=== PATIENT | male | born 1950 | race Hispanic/Latino ===

== ENCOUNTER 2017-07-08 13:11 | Emergency (ER) | payer SELFPAY ==
[2017-07-08 13:12] VITALS: BMI 28.6
[2017-07-08 13:24] VITALS: TEMP 98.1; O2SAT 98
--- NOTE | 2017-07-08 13:53 | ED PDOC ---
Arrival/HPI <Allen Cornejo - Last Filed: 07/08/17 15:49> <John Castillo - Last Filed: 07/08/17 17:01> - General Chief Complaint: Upper Extremity Problem/Injury - History of Present Illness Narrative History of Present Illness (Text): 07/08/17 13:48 Pt is a 67 yo M with PMH of DM, HTN, CAD, OK s/p stents, HLD, COPD presents to ED with left sided neck and shoulder pain. Pt states that pain has been on- going for 3 months now. Pt states that pain starts in his neck and radiates down his shoulder into his arm. Pt is unable to flex or abduct his left arm, nor can he flex his left elbow. Pt admits to some numbness on the lateral part of his arm proximally. Pt was evaluated at [facility] [place]. 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 Changes are worst at C4-5 and C5-6 with severe spinal canal and left neural foraminal stenosis. Pt was told that surgery vs epidural could be done. However, the wait times for either procedure was too long and patient wanted to be evaluated and treated sooner. (Allen Cornejo) Past Medical History - Provider Review Nursing Documentation Reviewed: Yes - Infectious Disease Hx of Infectious Diseases: None - Tetanus Immunization Tetanus Immunization: Unknown - Cardiac Hx Cardiac Disorders: Yes (CAD, OK) Hx Congestive Heart Failure: Yes Hx Hypertension: Yes - Pulmonary Hx Respiratory Disorders: No Hx Pneumonia: Yes (over 10 yrs ago) - Neurological Hx Neurological Disorder: No - HEENT Hx HEENT Disorder: Yes (wears eyeglasses) - Renal Hx Renal Disorder: No - Endocrine/Metabolic Hx Diabetes Mellitus Type 2: Yes - Hematological/Oncological Hx Blood Disorders: No - Integumentary Hx Dermatological Disorder: No - Musculoskeletal/Rheumatological Hx Falls: Yes () - Gastrointestinal Hx Gastrointestinal Disorders: No - Genitourinary/Gynecological Hx Reproductive Disorders: No - Psychiatric Hx Anxiety: Yes Hx Substance Use: No - Surgical History Hx Coronary Stent: Yes (2007) - Anesthesia Hx Anesthesia: No <Allen Cornejo - Last Filed: 07/08/17 15:49> Family/Social History - Physician Review Nursing Documentation Reviewed: Yes Family/Social History: Other (Non-contributory) Smoking Status: Heavy Smoker > 10 Cigarettes Daily Hx Alcohol Use: No Hx Substance Use: No <Allen Cornejo - Last Filed: 07/08/17 15:49> Allergies/Home Meds <Allen Cornejo - Last Filed: 07/08/17 15:49> <John Castillo - Last Filed: 07/08/17 17:01> Allergies/Adverse Reactions: Allergies No Known Allergies Allergy (Verified 07/08/17 13:21) Home Medications: Home Meds Medication Instructions Recorded Confirmed Gabapentin [Neurontin] 600 mg PO HS 07/03/15 07/08/17 Metoprolol Tartrate [Lopressor] 50 mg PO BID 07/03/15 07/08/17 Naproxen [Naprosyn] 500 mg PO BID 07/03/15 07/08/17 Simvastatin [Zocor] 80 mg PO HS 07/03/15 07/08/17 glyBURIDE [Micronase] 10 mg PO BID 07/03/15 07/08/17 Review of Systems - Review of Systems Constitutional: Normal Eyes: Normal ENT: Normal Respiratory: Normal Cardiovascular: Normal Gastrointestinal: Normal Genitourinary Male: Normal Musculoskeletal: Neck Pain Skin: Normal Neurological: Focal Weakness (left arm) Endocrine: Normal Hemo/Lymphatic: Normal Psychiatric: Normal <Allen Cornejo - Last Filed: 07/08/17 15:49> Physical Exam Vital Signs Reviewed: Yes Temperature: Afebrile Blood Pressure: Normal Pulse: Regular Respiratory Rate: Normal Appearance: Positive for: Uncomfortable Pain Distress: Moderate Mental Status: Positive for: Alert and Oriented X 3 - Systems Exam Head: Present: Atraumatic, Normocephalic Extroacular Muscles: Present: EOMI Mouth: Present: Moist Mucous Membranes Neck: Present: MIDLINE TENDERNESS (c4, 5, 6), Paraspinal Tenderness (left) Respiratory/Chest: Present: Clear to Auscultation. No: Respiratory Distress, Accessory Muscle Use, Rales, Rhonchi Cardiovascular: Present: Regular Rate and Rhythm, Normal S1, S2. No: Murmurs, Rub, Gallop Abdomen: No: Tenderness, Distention, Rebound, Guarding Back: Present: Normal Inspection Upper Extremity: Present: Other (Left Arm: Elbow flexion 0/5, Elbow extension 1/ 5, shoulder abduction and flexion 0/5, shoudler extension 2/5, hand body die maker 5/5, ulnar/radial deviation 5/5. Left triceps reflex 1+/4, biceps reflex 0/4, brachioradialis refex 0/4. Right arm strength/ROM WNL, right arm reflexes 2+/5. These findings are consistent with previous findings [facility] brought [facility] patient.) Neurological: Present: GCS=15, CN II-XII Intact. No: Motor Func Grossly Intact (see Upper extermity exam), Normal Sensory Function (decreased sensation proximal lateral upper arm.) Skin: Present: Warm, Dry, Normal Color Psychiatric: Present: Alert, Oriented x 3 <Allen Cornejo - Last Filed: 07/08/17 15:49> - Systems Exam Upper Extremity: Present: Other <John Castillo - Last Filed: 07/08/17 17:01> Vital Signs Temp Pulse Resp BP Pulse Ox 07/08/17 15:12 65 17 170/80 H 98 07/08/17 13:13 98.1 F 61 18 177/75 H 98 Medical Decision Making <Allen Cornejo - Last Filed: 07/08/17 15:49> <John Castillo - Last Filed: 07/08/17 17:01> ED Course and Treatment: 07/08/17 14:42 Assessment: 67 yo M presents with left sided neck and shoulder pain unchanged since being evaluated at [facility]. Exam findings are consistent with exam findings [facility] brought [facility] by patient. Plan: - Tramadol 07/08/17 15:52 On reassessment, patient pain improved with tramadol. Discussed with patient importance in follow up with Neurosurgery and Pain Management to be evaluated for surgery versus injections. Patient will be given prescription for tramadol and advised not to operate heavy machinery if taking medication. (Allen Cornejo) 07/08/17 14:42 67 yo male with left sided neck and shoulder pain. MRI results were documented. MRI copies were made for our records. Patient already has follow up with pain management and a neurosurgeon but we also gave him names of consults from our [facility]. He will follow up. He states he was offered surgery but he doesn' t want it at this point. (John Castillo) - Medication Orders Current Medication Orders: Discontinued Medications Tramadol HCl (Ultram) 50 mg PO STAT STA Stop: 07/08/17 14:35 Last Admin: 07/08/17 15:05 Dose: 50 mg MAR Pain Assessment Document 07/08/17 15:05 SF (Rec: 07/08/17 15:05 SF [id number] Pain Reassessment Is this a pain reassessment? Yes Sleep Is patient sleeping during reassessment? No Presence of Pain Presence of Pain Yes Disposition/Present on Arrival - Present on Arrival Any Indicators Present on Arrival: No History of DVT/PE: No History of Uncontrolled Diabetes: No Urinary Catheter: No History of Decub. Ulcer: No History Surgical Site Infection Following: None - Disposition Have Diagnosis and Disposition been Completed?: Yes Disposition Time: 15:51 Patient Plan: Discharge <Allen Cornejo - Last Filed: 07/08/17 15:49> <John Csatillo - Last Filed: 07/08/17 17:01> - Disposition Diagnosis: Cervical radicular pain, Herniated disc Disposition: HOME/ ROUTINE Patient Problems: Current Active Problems Problem Status Onset Cervical radicular pain Acute Herniated disc Acute Condition: STABLE Discharge Instructions (ExitCare): Herniated Disc, Radiculopathy (DC) Additional Instructions: Mr Calvinclaire, thank you for letting us take care of you today. Your provider was Dr. Castillo. You were treated for Cervical Radiculpathy. The emergency medical care you received today was directed at your acute symptoms. If you were prescribed any medication, please fill it and take as directed. It may take several days for your symptoms to resolve. Return to the Emergency Department if your symptoms worsen, do not improve, or if you have any other problems. Make sure to follow up with NeuroSurgery and Pain management/Anesthesia as instructed by us. Please contact your doctor or call one of the physicians/clinics you have been referred to that are listed on the Patient Visit Information form that is included in your discharge packet. Bring any paperwork you were given at discharge with you along with any medications you are taking to your follow up visit. Our treatment cannot replace ongoing medical care by a primary care provider (PCP) outside of the emergency department. Thank you for allowing the [facility] team to be part of your care today. If you had an X-Ray or CT scan: A Radiologist will review the ED reading if any change in treatment is needed we will contact you. If you had a blood, urine, or wound culture: It will take several days for the results, if any change in treatment is needed we will contact you. If you had an STI test: It will take 48 hours for the results. Please call after 1 week if you have not heard back. Prescriptions: traMADol [Ultram] 50 mg PO Q6H PRN #20 tab PRN Reason: Pain, Moderate (4-7) Referrals: Paul Romeo MD [Non-Staff] - Follow up with primary Ramiro Merino MD [Staff Provider] - Follow up with primary Forms: [employer] ([place])
[2017-07-08 16:02] VITALS: BP 170/80; PULSE 65; RESP 17
== END 2017-07-08 16:02 | disposition home or self-care (01) ==
LOC: ED 13:11
DX: M54.12 Radiculopathy, cervical region (principal); M50.20 Other cervical disc displacement, unspecified cervical region; E11.9 Type 2 diabetes mellitus without complications; E78.5 Hyperlipidemia, unspecified; I10 Essential (primary) hypertension; I25.10 Atherosclerotic heart disease of native coronary artery without angina pectoris; I50.9 Heart failure, unspecified; I25.2 Old myocardial infarction; J44.9 Chronic obstructive pulmonary disease, unspecified; F17.210 Nicotine dependence, cigarettes, uncomplicated